=== PATIENT | male | born 1985 | race African-American/Black ===

== ENCOUNTER 2017-08-27 07:50 | Emergency (ER) | payer OTHER ==
[2017-08-27 08:04] VITALS: BP 139/84
--- NOTE | 2017-08-27 08:35 | ED Physician Documentation ---
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 The pain started about one month ago and it been waxing and waning since that time. He denies any traumatic injury. He denies history of similar symptoms in the past. He was seen at the [facility] last week and an x-ray of his foot was reportedly negative. Review of Systems Constitutional: denies: Fever Nose: denies: Congestion Respiratory: denies: Cough Musculoskeletal: reports: Extremity pain (Left foot.). denies: Back pain Neurologic: denies: Focal weakness, Numbness, Headache PD PAST MEDICAL HISTORY - Past Medical History Past Medical History: No Endocrine/Autoimmune: None - Past Surgical History Past Surgical History: No - Present Medications Home Medications: Ambulatory Orders Medication Instructions Recorded Confirmed No Known Home Medications [No 08/27/17 08/27/17 Known Home Medications] - Allergies Allergies/Adverse Reactions: Allergies Allergy/AdvReac Type Severity Reaction Status Date / Time No Known Drug Allergies Allergy Verified 03/27/16 17:50 - Social History Does the pt smoke?: No Smoking Status: Never smoker Does the pt drink ETOH?: Yes Does the pt have substance abuse?: No - Immunizations Immunizations are current?: Yes - POLST Patient has POLST: No PD ED PE NORMAL - Vitals Vital signs reviewed: Yes (Borderline hypertension.) - General General: Alert and oriented X 3, Well developed/nourished - HEENT HEENT: Atraumatic - Respiratory Respiratory: No respiratory distress - Derm Derm: No rash - Extremities Extremities: No edema, No calf tenderness / cord, Other (There is tenderness to palpation at the lateral aspect of the left foot, just proximal to the MCP joint. There is an associated callus that is the focal point of tenderness to palpation. There is no break in the integument, and no erythema. Distal neurovascular is intact.) - Neuro Neuro: Alert and oriented X 3, No motor deficit, No sensory deficit Results - Vitals Vitals: Oxygen O2 Source Room air PD MEDICAL DECISION MAKING - ED course Complexity details: considered differential, d/w patient ED course: The patient's foot pain is related to callus formation on the lateral aspect of the distal foot. It is likely that his boots are an inciting cause of the callus formation. I discussed with him the importance of properly fitting boots , and recommended follow-up with a repair mechanic. I discussed with him symptomatic treatment, such as ibuprofen, outpatient follow-up, as well as potentially worrisome signs or symptoms that should prompt reevaluation in the emergency department. Departure - Departure Disposition: 01 Home, Self Care Clinical Impression: Callus of foot Condition: Stable Instructions: Corns Calluses Tx Follow-Up: SHARAD Headley [Provider Group] Comments: The pain in your foot appears to be caused by an inflammatory process involving a callus on the lateral aspect of your foot. I recommend that you ask your primary physician for referral to a repair mechanic, and that you get better fitting boots, that allow more space in the foot box. He can use ibuprofen, up to 800 mg 3 times daily, for its anti-inflammatory effect. Let pain be your guide to activity level. Return to the emergency department if you develop increasing pain, redness, swelling, or otherwise worsening symptoms. Discharge Date/Time: 08/27/17 08:39
== END 2017-08-27 08:39 | disposition home or self-care (01) ==
LOC: ED 07:50
DX: L84 Corns and callosities (principal)
CPT/HCPCS: 99282; 99283

== ENCOUNTER 2018-04-14 06:31 | Emergency (ER) | payer OTHER ==
--- NOTE | 2018-04-14 07:53 | ED Physician Documentation ---
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 He has had pain in the eye and he has developed photophobia and redness with pain. He does not have foreign body sensation and he is able to see normally with occasional blurring of the vision. He has pain to EOM as well. This is especially bad if he is outside in the bright light. Review of Systems Constitutional: denies: Fever Eyes: reports: Photophobia, Irritation. denies: Decreased vision Ears: denies: Ear pain Nose: denies: Congestion Throat: denies: Sore throat Respiratory: denies: Cough PD PAST MEDICAL HISTORY - Past Medical History Past Medical History: No Endocrine/Autoimmune: None - Past Surgical History Past Surgical History: No - Present Medications Home Medications: Ambulatory Orders Medication Instructions Recorded Confirmed Cyclopentolate 1% Ophth Drops 1 drops RIGHTEYE BID #1 bottle 04/14/18 [Cyclogel 1% Ophth Drops] prednisoLONE 1% OPHTH DROPS [Pred 1 drops RIGHTEYE QID #1 bottle 04/14/18 Forte 1% Ophth Drops] - Allergies Allergies/Adverse Reactions: Allergies Allergy/AdvReac Type Severity Reaction Status Date / Time No Known Drug Allergies Allergy Verified 04/14/18 06:37 - Social History Does the pt smoke?: No Smoking Status: Never smoker Does the pt drink ETOH?: Yes Does the pt have substance abuse?: No - Immunizations Immunizations are current?: Yes - POLST Patient has POLST: No PD ED PE NORMAL - Vitals Vital signs reviewed: Yes (hypertensive ) - General General: Alert and oriented X 3, No acute distress, Well developed/nourished - HEENT HEENT: Atraumatic, PERRL, EOMI, Other (There is scleral injection and no deformity or laceration to the globe. There is obvious photophobia and this is with light to either eye. swinging light test is negative. ) - Neck Neck: Supple, no meningeal sign, No bony TTP - Respiratory Respiratory: No respiratory distress - Derm Derm: Normal color, Warm and dry, No rash - Extremities Extremities: No deformity, No edema - Neuro Neuro: No motor deficit, No sensory deficit Eye Opening: Spontaneous Motor: Obeys Commands Verbal: Oriented GCS Score: 15 - Psych Psych: Normal mood, Normal affect Results - Vitals Vitals: Vital Signs - 24 hr 04/14/18 04/14/18 06:35 08:12 Temperature 36.7 C Heart Rate 85 65 Respiratory 18 16 Rate Blood Pressure 133/85 H 132/60 H O2 Saturation 99 98 Oxygen O2 Source Room air PD MEDICAL DECISION MAKING - ED course Complexity details: considered differential, d/w patient ED course: 32-year-old active [employer] male with a blunt eye injury does not have evidence of rupture of the globe or anterior hyphema he does not have visual loss and he does appear to have significant photophobia with light shined in either eye and he is treated for uveitis. Dr. Sidney Dewey is consulted in the case by telephone recommends the treatment provided and will follow up with the patient in his office tomorrow. Departure - Departure Disposition: 01 Home, Self Care Clinical Impression: Traumatic iridocyclitis of right eye Condition: Stable Instructions: ED Iritis Follow-Up: Sidney Dewey MD [Provider Admit Priv/Credential] - Prescriptions: Cyclopentolate 1% Ophth Drops [Cyclogel 1% Ophth Drops] 1 drops RIGHTEYE BID #1 bottle prednisoLONE 1% OPHTH DROPS [Pred Forte 1% Ophth Drops] 1 drops RIGHTEYE QID #1 bottle Discharge Date/Time: 04/14/18 08:12
[2018-04-14 08:14] VITALS: BP 132/60
== END 2018-04-14 08:12 | disposition home or self-care (01) ==
LOC: ED 06:31
DX: H20.9 Unspecified iridocyclitis (principal)
CPT/HCPCS: 99283